=== PATIENT | male | born 1995 | race Caucasian/White ===

== ENCOUNTER 2017-04-01 16:43 | Emergency (ER) | payer OTHER ==
[~2017-04-01] VITALS: Ht 182.9 cm; Wt 70.9 kg
[~2017-04-01 16:43] MED LIST: ALBUTEROL SULF8.5 GM IH; FISH OIL 1,0001 EAC7 PO; PREDNISONE20 MG PO; TESSALON PERLE100 MG PO; ZITHROMAX250 MG PO
[2017-04-01 17:09] VITALS: BP 119/73
== END 2017-04-01 17:35 | disposition left against medical advice (07) ==
LOC: EME 16:43
DX: S80.862A Insect bite (nonvenomous), left lower leg, initial encounter (principal); Z53.21 Procedure and treatment not carried out due to patient leaving prior to being seen by health care provider
CPT/HCPCS: 80048; 85027